=== PATIENT | female | born 1985 | race Hispanic/Latino ===

== ENCOUNTER 2022-12-17 10:22 | Day surgery (SDC) | payer OTHER ==
[2022-12-17] MEDS ORDERED: Acetaminophen 500 MG TAB ONE (10:35)
[2022-12-17] MEDS ORDERED: Iron Sucrose Complex 500 MG in Sodium Chloride 0.9% 250 ML 250 ML IVPB SCH (10:45)
[2022-12-17] MEDS ORDERED: Acetaminophen 500 MG TAB PO SCH (10:45)
== END 2022-12-17 15:15 | disposition home or self-care (01) ==
LOC: CSHSDC/OP 10:22
PROVIDERS: ATTEND Student in an Organized Health Care Education/Training Program
DX: O99.019 Anemia complicating pregnancy, unspecified trimester (principal); D64.9 Anemia, unspecified; Z3A.00 Weeks of gestation of pregnancy not specified
CPT/HCPCS: J1756; J7050

== ENCOUNTER 2022-12-24 13:09 | Day surgery (SDC) | payer OTHER ==
[2022-12-24] MEDS ORDERED: hydrALAZINE 20 MG/ML VIAL SLOW IVP PRN (13:53)
[2022-12-24 14:02] VITALS: BMI 37.6
[2022-12-24] MEDS ORDERED: Acetaminophen 500 MG TAB PO SCH (14:45)
[2022-12-24 15:07] LABS: Bilirubin Neg (Negative); Blood, Urine Negative (Negative); Clarity Clear (Clear); Glucose, Urine (Dipstick) Normal (Negative); Ketone, Urine 5 mg/dL (Negative); Leukocyte Negative (Negative); Nitrite Negative (Negative); Protein, Urine (Dipstick) Negative (Neg-Trace); Urobilinogen Normal mg/dL (Less than 2)
[2022-12-24 15:38] LABS: CAUTI Indications for Culture Pregnancy; RBC/HPF 0-3 HPF (0-3); Squamous Epithelial 0-3 HPF (0-3); Transitional Epithelial 0-3 HPF (None Seen); WBC/HPF 0-3 HPF (0-3)
[2022-12-24 15:39] LABS: Bacteria/HPF 1+ HPF (None Seen); Mucous/LPF Rare LPF (<2+)
[2022-12-24 15:40] LABS: Urine Culture Reflex Yes Yes
== END 2022-12-24 16:55 | disposition home or self-care (01) ==
LOC: CSHLD/OP 13:09
PROVIDERS: ATTEND Emergency Medicine
DX: O99.891 Other specified diseases and conditions complicating pregnancy (principal); R10.9 Unspecified abdominal pain; M54.50 Low back pain, unspecified; O26.853 Spotting complicating pregnancy, third trimester; O09.523 Supervision of elderly multigravida, third trimester; O34.211 Maternal care for low transverse scar from previous cesarean delivery; O09.93 Supervision of high risk pregnancy, unspecified, third trimester; O99.323 Drug use complicating pregnancy, third trimester; F19.10 Other psychoactive substance abuse, uncomplicated; O34.83 Maternal care for other abnormalities of pelvic organs, third trimester; N83.201 Unspecified ovarian cyst, right side; O98.212 Gonorrhea complicating pregnancy, second trimester; Z79.899 Other long term (current) drug therapy; Z3A.35 35 weeks gestation of pregnancy
CPT/HCPCS: 51701; 81001; 87086; 99283